=== PATIENT | female | born 1975 | race Caucasian/White ===

== ENCOUNTER 2018-09-13 07:31 | Day surgery (SDC) | payer OTHER ==
[2018-09-13] VITALS (7 sets, daily range): BP systolic 105–128; BP diastolic 56–90
[~2018-09-13] VITALS: Ht 157.5 cm; Wt 51.6 kg
[~2018-09-13 07:31] MED LIST: LR 1,000 ML IV SCH
[2018-09-13 07:51] LABS: HEMATOCRIT 45.4 % (36.0-47.0); HEMOGLOBIN 15.3 g/dl (12.0-15.5); MEAN CORPUSCULAR HGB CONC 33.7 g/dl (32.0-36.5); PLATELET COUNT, AUTOMATED 179 10^3/uL (150-450); RED BLOOD COUNT 4.78 10^6/uL (4.00-5.40); WHITE BLOOD COUNT 6.4 10^3/uL (4.0-10.0)
[2018-09-13 07:53] LABS: URINE PREG TEST NEGATIVE (NEGATIVE)
[2018-09-13] MEDS ORDERED: OXYC1TAB23 PO (08:09)
[2018-09-13] MEDS ORDERED: IBUP-1022 PO (08:11)
[2018-09-13] MEDS ORDERED: LIDOCAINE 2% INJ 100 MG/5 ML SDV (FOR ANES.) As Ordered ONE (08:55)
[2018-09-13] MEDS ORDERED: MIDAZOLAM INJ 2 MG/2 ML VIAL (J2250) As Ordered ONE (08:55)
[2018-09-13] MEDS ORDERED: dexameTHASONE 4 MG/ML 1ML VIAL (J1100) As Ordered ONE (08:55)
[2018-09-13] MEDS ORDERED: ROCURONIUM BROMIDE 50 MG/5 ML VIAL As Ordered ONE ×2 (08:55→09:12)
[2018-09-13] MEDS ORDERED: ONDANSETRON 4MG/2ML VIAL (J2405) As Ordered ONE (08:55)
[2018-09-13] MEDS ORDERED: METOCLOPRAMIDE INJ 10MG/2ML VIAL (J2765) As Ordered ONE (08:55)
[2018-09-13] MEDS ORDERED: PROPOFOL 200 MG/20 ML VIAL As Ordered ONE (08:55)
[2018-09-13] MEDS ORDERED: fentaNYL 250 MCG/5 ML INJECTION (J3010) As Ordered ONE (08:55)
[2018-09-13] MEDS ORDERED: SUGAMMADEX SODIUM 500 MG/5 ML VIAL (BRIDION) As Ordered ONE (08:55)
[2018-09-13] MEDS ORDERED: KETOROLAC 60 MG/2 ML VIAL (J1885) As Ordered ONE (08:55)
[2018-09-13] MEDS ORDERED: HYDROmorphone HCL 2 MG/ML 1ML VIAL (J1170) As Ordered ONE (09:18)
[2018-09-13] MEDS ORDERED: BUPIVACAINE HCL 0.25% 10 ML VIAL As Ordered ONE (09:54)
[2018-09-13] MEDS ORDERED: METHYLENE BLUE 0.5% (5MG/ML) 10 ML AMP (PROVAYBLUE)(Q9968 PER 1MG) As Ordered ONE (09:55)
[2018-09-13] MEDS ORDERED: fentaNYL 100 MCG/2 ML INJECTION (J3010) IV PRN (10:30)
[2018-09-13] MEDS ORDERED: ONDANSETRON 4MG/2ML VIAL (J2405) IV PRN ×2 (10:30)
[2018-09-13] MEDS ORDERED: LR 1,000 ML IV SCH ×2 (10:30)
[2018-09-13] MEDS ORDERED: PERCOCET 5MG/325MG TAB PO PRN ×2 (10:30)
[2018-09-13] MEDS ORDERED: MORPHINE 4 MG/ML 1ML VIAL/SYRINGE (J2270) IV PRN (10:30)
[2018-09-13] MEDS ORDERED: NORCO, ANEXSIA 5/325MG TABLET (HYDROcodone/ACETAMINOPHEN) PO PRN (10:30)
[2018-09-13] MEDS ORDERED: IBUPROFEN 800 MG TAB PO PRN (18:15)
[2018-09-13] MEDS ORDERED: DOCUSATE SODIUM 100 MG CAP PO SCH (21:00)
--- NOTE | 2018-09-16 21:31 | RO ---
DATE OF PROCEDURE: 09/13/2018 PREPROCEDURE DIAGNOSIS: Dysmenorrhea, pelvic pain. POSTPROCEDURE DIAGNOSIS: Dysmenorrhea, pelvic pain. PROCEDURE: Robotic-assisted laparoscopic hysterectomy and bilateral salpingo-oophorectomy. Cystoscopy. SURGEON: Nithin Snyder MD DEBONING TEAM LEADER: Airam Cabral NP ANESTHESIA: General endotracheal. ESTIMATED BLOOD LOSS: 100 mL. URINE OUTPUT: 100 mL. FINDINGS: Normal sized uterus, moderately dense scarring of the bladder to the anterior lower uterine segment, normal fallopian tubes and ovaries, evidence of prior tubal sterilization procedure. DESCRIPTION OF PROCEDURE: The patient was taken to the operating room where general endotracheal anesthesia was induced. She was prepped and draped in a sterile fashion in the dorsal lithotomy position. A Frank catheter was placed. A Spectral Edgeare uterine manipulator was placed. A periumbilical incision was made with a scalpel. The Veress needle was placed through this incision while tenting up on the skin of the abdomen. Intraabdominal location of the Veress needle was assessed with the use of a saline-filled syringe. A pneumoperitoneum was created. The Veress needle was removed. The 8 mm trocar using Lollipuff was inserted through this incision. Three 8 mm suprapubic ports were placed under direct visualization. The patient was placed in Trendelenburg position. The [employer] surgical robot was docked to the ports. Using the fenestrated bipolar instrument and vessel sealer, the IP ligaments, broad ligament attachments, round ligaments were coagulated and incised bilaterally. The anterior and posterior leaves of the broad ligament were . A bladder flap was created using a combination of blunt and sharp dissection. There was noted to be a superficial injury to the muscularis of the bladder that was approximately 1 cm in length while creating a bladder flap. This did not penetrate into the mucosa of the bladder. The superficial laceration was noted, and the procedure proceeded as normal. The bladder flap was finished. The uterine vessels were coagulated and incised. A colpotomy was created in the upper vagina at the level of the VCare cup using monopolar Endoshears. This was extended circumferentially around the upper vagina. Specimen including the uterus, cervix, fallopian tube and ovaries was removed through the vagina. The vaginal cuff was closed with #1 V-Loc suture in a running fashion. The pelvis was irrigated with good hemostasis noted. #2-0 Vicryl suture was used to place three interrupted sutures in the muscularis of the bladder in the area of the injury. The area was completely closed. The pneumoperitoneum was released. All instruments were removed. Cystoscopy was performed using a 70-degree cystoscope. The patient received methylene blue dye intravenously. Bilateral ureteral jets were identified. There was no evidence of injury to the mucosa of the bladder upon close inspection with cystoscopy. The sutures from the muscularis bladder repair were not visible on cystoscopy. The cystoscope was removed and a Frank catheter was placed. The ports were removed, the skin was closed with #4-0 Monocryl subcuticular sutures. Sponge, instrument and needle counts were correct. Airam Cabral NP, assisted with all aspects of procedure from beginning to end. She helped insert the ports after positioning the patient. She helped dock the robot and manipulate the uterus throughout the procedure. She subsequently removed the specimen and helped with undocking and movement of the patient.
== END 2018-09-13 18:50 | disposition home or self-care (01) ==
LOC: M SDC 07:31 → M PED 11:30 → M SDC 18:50
PROVIDERS: ATTEND Specialist
DX: N94.6 Dysmenorrhea, unspecified (principal); R10.2 Pelvic and perineal pain; N72 Inflammatory disease of cervix uteri; N83.01 Follicular cyst of right ovary; N83.02 Follicular cyst of left ovary; N83.10 Corpus luteum cyst of ovary, unspecified side; K58.9 Irritable bowel syndrome, unspecified; K21.9 Gastro-esophageal reflux disease without esophagitis; M12.9 Arthropathy, unspecified; Z72.0 Tobacco use
CPT/HCPCS: 36415; 58571; 84703; 85027; 86850; 86900; 86901; 88307; J0690; J1100; J1170; J1885; J2250; J2405; J2765; J3010; Q9968

== ENCOUNTER → 2019-07-04 | Outpatient (REF) | payer OTHER ==
[~2019-07-04] MED LIST changes: +IBUP-1022 PO; -LR 1,000 ML IV SCH; +OXYC1TAB23 PO
== END ==
LOC: M SFHCCLAY 10:58
PROVIDERS: ATTEND Nurse Practitioner Family
DX: J02.9 Acute pharyngitis, unspecified (principal)

== ENCOUNTER → 2019-08-20 | Outpatient (REF) | payer OTHER ==
[2019-08-20 16:17] LABS: HEMATOCRIT 47.1 % (36.0-47.0); HEMOGLOBIN 16.1 g/dl (12.0-15.5); MEAN CORPUSCULAR HEMOGLOBIN 32.4 pg (27.0-33.0); MEAN CORPUSCULAR HGB CONC 34.2 g/dl (32.0-36.5); MEAN CORPUSCULAR VOLUME 94.8 fl (80.0-96.0); PLATELET COUNT, AUTOMATED 201 10^3/uL (150-450); RED BLOOD COUNT 4.97 10^6/uL (4.00-5.40)
[2019-08-20 16:23] LABS: ALBUMIN 4.2 GM/DL (3.2-5.2); ALT/SGPT 25 U/L (12-78); BILIRUBIN,TOTAL 0.7 MG/DL (0.2-1.0); BLOOD UREA NITROGEN 12 MG/DL (7-18); CALCIUM LEVEL 9.7 MG/DL (8.5-10.1); CARBON DIOXIDE LEVEL 30 MEQ/L (21-32); CHLORIDE LEVEL 103 MEQ/L (98-107); CHOLESTEROL LEVEL 229 MG/DL (<200); CREATININE FOR GFR 0.75 MG/DL (0.55-1.30); GLOMERULAR FILTRATION RATE > 60.0 (>58); GLUCOSE, FASTING 82 MG/DL (70-100); HDL CHOLESTEROL 53 MG/DL (>40); LDL CHOLESTEROL 155 MG/DL (<100); NON-HDL-C 176 MG/DL; POTASSIUM SERUM 4.7 MEQ/L (3.5-5.1); SODIUM LEVEL 139 MEQ/L (136-145); TOTAL PROTEIN 7.8 GM/DL (6.4-8.2); TRIGLYCERIDES LEVEL 103 MG/DL (<150)
== END ==
LOC: M SFHCCLAY 11:55
PROVIDERS: ATTEND Nurse Practitioner Family
DX: E78.5 Hyperlipidemia, unspecified (principal)

== ENCOUNTER → 2019-08-22 | Outpatient (CLI) | payer OTHER ==
--- NOTE | 2019-08-22 10:04 | REP ---
REASON: Bilateral hip pain. PRIORS: None. 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 There is no fracture, dislocation or subluxation. LEFT HIP: There is a prominent left femoral head CAM deformity with marginal osteophytosis and asymmetric joint space narrowing. There is no acute fracture, dislocation or subluxation. AP PELVIS: No acute fracture. Please see dedicated hip reports. Electronically Signed by Arnold Palomino DO 08/22/2019 10:32 A
--- NOTE | 2019-08-22 10:08 | REP ---
CERVICAL SPINE SERIES: Seven views of the cervical spine are performed. There is no compression fracture. There is no prevertebral soft tissue swelling. There is mild spurring of C4 through C6. There is mild disc space narrowing at C5-6. At that level, there is slight retrolisthesis of C5 on C6 of about 2 mm in the neutral position and with extension. This reduces with flexion. There is no radiographic evidence of significant neural foraminal narrowing. IMPRESSION: Mild degenerative disc changes C5-6 with slight retrolisthesis 2 mm of C5 on C6, both in the neutral and extension positions. This reduces with flexion. Electronically Signed by Isra Prescott MD 08/22/2019 10:41 A
--- NOTE | 2019-08-22 10:20 | REP ---
THORACIC SPINE, AP AND LATERAL: Three AP and lateral views of the thoracic spine are performed. There is no compression fracture or malalignment. There is normal thoracic kyphosis. There is moderate spurring of T8 and T9 anteriorly with scattered tiny spurs of the remaining thoracic vertebral bodies. There is slight disc space narrowing and subchondral sclerosis at several levels. Posterior elements are intact. IMPRESSION: Mild degenerative changes with no fracture or dislocation. Electronically Signed by Isra Prescott MD 08/22/2019 10:41 A
== END ==
LOC: M CLY 08:25
PROVIDERS: ATTEND Nurse Practitioner Family
DX: M43.12 Spondylolisthesis, cervical region (principal); M50.322 Other cervical disc degeneration at C5-C6 level; M54.6 Pain in thoracic spine; M25.559 Pain in unspecified hip

== ENCOUNTER 2020-02-04 09:59 | Emergency (ER) | payer OTHER ==
[~2020-02-04] VITALS: Ht 157.5 cm; Wt 58.3 kg
[~2020-02-04 09:59] MED LIST changes: -CARA1TAB6 PO; -ONDA4TAB6 PO; -PANT-23 PO; -PROTPAK PO
[2020-02-04 10:39] LABS: BASO % 0.6 % (0.0-1.0); EOS # 0.1 10^3/uL (0.0-0.5); EOS % 1.9 % (0.0-3.0); HEMATOCRIT 44.7 % (36.0-47.0); HEMOGLOBIN 15.4 g/dl (12.0-15.5); LYMPH % 37.9 % (24.0-44.0); MEAN CORPUSCULAR HEMOGLOBIN 31.9 pg (27.0-33.0); MEAN CORPUSCULAR HGB CONC 34.5 g/dl (32.0-36.5); MEAN CORPUSCULAR VOLUME 92.5 fl (80.0-96.0); MONO # 0.6 10^3/uL (0.0-0.8); MONO % 11.6 % (0.0-5.0); NEUTROPHILS # 2.6 10^3/uL (1.5-8.5); NEUTROPHILS % 47.8 % (36.0-66.0); PLATELET COUNT, AUTOMATED 157 10^3/uL (150-450); RED BLOOD COUNT 4.83 10^6/uL (4.00-5.40); WHITE BLOOD COUNT 5.3 10^3/uL (4.0-10.0)
[2020-02-04 11:09] LABS: ALBUMIN 3.7 GM/DL (3.2-5.2); ALT/SGPT 65 U/L (12-78); BILIRUBIN,DIRECT 0.1 MG/DL (0.0-0.2); BILIRUBIN,TOTAL 0.3 MG/DL (0.2-1.0); BLOOD UREA NITROGEN 10 MG/DL (7-18); CALCIUM LEVEL 9.1 MG/DL (8.5-10.1); CARBON DIOXIDE LEVEL 25 MEQ/L (21-32); CHLORIDE LEVEL 109 MEQ/L (98-107); CREATININE FOR GFR 0.74 MG/DL (0.55-1.30); GLOMERULAR FILTRATION RATE > 60.0 (>58); GLUCOSE, FASTING 82 MG/DL (70-100); LIPASE 114 U/L (73-393); POTASSIUM SERUM 3.6 MEQ/L (3.5-5.1); SODIUM LEVEL 139 MEQ/L (136-145); TOTAL PROTEIN 7.3 GM/DL (6.4-8.2)
[2020-02-04] MEDS ORDERED: ISOVUE-370 76% 100ML VIAL As Ordered ONE (11:28)
[2020-02-04] MEDS ORDERED: NS 1,000 ML IV ONE (11:30)
[2020-02-04] MEDS ORDERED: ONDANSETRON 4MG/2ML VIAL IV ONE (11:30)
[2020-02-04] MEDS ORDERED: KETOROLAC 30 MG/ML 1ML VIAL IV ONE (11:30)
--- NOTE | 2020-02-04 12:26 | REPVR ---
PROCEDURE INFORMATION: Exam: CT Abdomen And Pelvis With Contrast Exam date and time: 02/04/2020 11:41 AM Age: 44 years old Clinical indication: Abdominal pain; Additional info: Abd pain TECHNIQUE: Imaging protocol: Computed tomography of the abdomen and pelvis with intravenous contrast. Radiation optimization: All CT scans at this facility use at least one of these dose optimization techniques: automated exposure control; mA and/or kV adjustment per patient size (includes targeted exams where dose is matched to clinical indication); or iterative reconstruction. Contrast material: ISOVUE 370; Contrast volume: 100 ml; Contrast route: INTRAVENOUS (IV); COMPARISON: CT ABD PELVIS WITH CONTRAST 02/08/2016 9:55 AM FINDINGS: Pleural space: No acute airspace or pleural disease. Liver: Punctate hypodensities in the liver which are too small to accurately characterize. Gallbladder and bile ducts: No cholelithiasis or biliary ductal dilatation. Pancreas: No pancreatic mass or ductal dilatation. Spleen: No splenomegaly. Adrenals: Subtle left adrenal nodularity. Kidneys and ureters: Normal renal morphology. No hydronephrosis. Stomach and bowel: Gastric wall thickening. No significant small bowel dilatation. Scattered diverticula, without pericolonic inflammation. Prominent stool. Appendix: No acute appendicitis. Intraperitoneal space: Trace free fluid in the cul-de-sac. Vasculature: Vascular calcification. Normal caliber of the abdominal aorta. Lymph nodes: Subcentimeter lymph nodes. Bladder: Unremarkable bladder. Reproductive: Status post hysterectomy. Bones/joints: L3 limbus vertebra. Degenerative change. Calcified disc bulging at the L5-S1 level. IMPRESSION: 1. Gastric wall thickening. 2. Scattered diverticula, without pericolonic inflammation. 3. Additional findings as described above. Electronically signed by: Isael Gonzalez On 02/04/2020 12:26:08 PM
[2020-02-04] MEDS ORDERED: ONDA4TAB6 PO (12:55)
[2020-02-04] MEDS ORDERED: PANT-23 PO (12:55)
[2020-02-04] MEDS ORDERED: CARA1TAB6 PO (12:55)
[2020-02-04 13:10] VITALS: BP 106/64
--- NOTE | 2020-02-06 08:55 | ED PDOC ---
Post-Departure Follow-Up radiology report faxed to Amira Lane MD Feb 06, 2020 08:55
== END 2020-02-04 13:12 | disposition home or self-care (01) ==
LOC: M ED 09:59
DX: K29.70 Gastritis, unspecified, without bleeding (principal); K58.9 Irritable bowel syndrome, unspecified; F17.200 Nicotine dependence, unspecified, uncomplicated; K57.90 Diverticulosis of intestine, part unspecified, without perforation or abscess without bleeding
CPT/HCPCS: 36415; 74177; 80048; 80076; 81001; 83690; 85025; 96361; 96374; 96375; 99284; J1885; J2405; Q9967

== ENCOUNTER → 2020-02-04 | Outpatient (REF) | payer OTHER ==
[~2020-02-04] MED LIST changes: +CARA1TAB6 PO; +ONDA4TAB6 PO; +PANT-23 PO; +PROTPAK PO
== END ==
LOC: M LAB REF 16:25
PROVIDERS: ATTEND Physician Assistant
DX: K29.70 Gastritis, unspecified, without bleeding (principal)

== ENCOUNTER 2020-02-08 18:56 | Emergency (ER) | payer OTHER ==
[~2020-02-08] VITALS: Ht 157.5 cm; Wt 56.3 kg
[~2020-02-08 18:56] MED LIST changes: +CARA1TAB6 PO; +ONDA4TAB6 PO; +PANT-23 PO
[2020-02-08] MEDS ORDERED: KETOROLAC 30 MG/ML 1ML VIAL IV ONE (19:30)
[2020-02-08] MEDS ORDERED: NS 1,000 ML IV ONE (19:30)
--- NOTE | 2020-02-08 19:41 | REPVR ---
PROCEDURE INFORMATION: Exam: XR Chest, 2 Views Exam date and time: 02/08/2020 7:25 PM Age: 44 years old Clinical indication: Pain; Other: Abd; Additional info: Abdominal pain TECHNIQUE: Imaging protocol: XR of the chest Views: 2 views. COMPARISON: No relevant prior studies available. FINDINGS: Lungs: Unremarkable. No consolidation. Pleural space: Unremarkable. No pleural effusion. No pneumothorax. Heart/Mediastinum: Unremarkable. No cardiomegaly. Bones/joints: Unremarkable. IMPRESSION: No acute findings. Electronically signed by: Rex Calvert On 02/08/2020 19:40:45 PM
[2020-02-08 20:07] LABS: BASO % 0.4 % (0.0-1.0); EOS # 0.1 10^3/uL (0.0-0.5); EOS % 2.3 % (0.0-3.0); HEMATOCRIT 43.8 % (36.0-47.0); HEMOGLOBIN 15.3 g/dl (12.0-15.5); LYMPH # 1.8 10^3/uL (1.5-5.0); LYMPH % 31.6 % (24.0-44.0); MEAN CORPUSCULAR HEMOGLOBIN 31.5 pg (27.0-33.0); MEAN CORPUSCULAR HGB CONC 34.9 g/dl (32.0-36.5); MEAN CORPUSCULAR VOLUME 90.1 fl (80.0-96.0); MONO # 0.6 10^3/uL (0.0-0.8); MONO % 10.8 % (0.0-5.0); NEUTROPHILS % 54.5 % (36.0-66.0); PLATELET COUNT, AUTOMATED 225 10^3/uL (150-450); RED BLOOD COUNT 4.86 10^6/uL (4.00-5.40); WHITE BLOOD COUNT 5.6 10^3/uL (4.0-10.0)
[2020-02-08 20:37] LABS: ALBUMIN 3.6 GM/DL (3.2-5.2); ALT/SGPT 51 U/L (12-78); BILIRUBIN,DIRECT < 0.1 MG/DL (0.0-0.2); BILIRUBIN,TOTAL 0.5 MG/DL (0.2-1.0); CK-MB VALUE MASS < 1.0 NG/ML (<3.6); CPK CREATINE PHOSPHOKINASE 89 U/L (26-192); LIPASE 182 U/L (73-393); MB/CK RELATIVE INDEX 1.12 (< OR =4); TROPONIN I < 0.02 NG/ML (< 0.10)
--- NOTE | 2020-02-08 20:55 | REPVR ---
PROCEDURE INFORMATION: Exam: US Abdomen, Limited; Right Upper Quadrant Exam date and time: 02/08/2020 8:22 PM Age: 44 years old Clinical indication: Abdominal pain; Acute; Additional info: Ruq pain, sharp TECHNIQUE: Imaging protocol: US abdomen. Real time ultrasound with image documentation. Limited exam focused on the right upper quadrant. COMPARISON: CT ABD/PEL W/IV CONTRAST ONLY 02/04/2020 11:34 AM FINDINGS: Liver: Unremarkable. Gallbladder: No gallstones. No gallbladder wall thickening or pericholecystic fluid. Negative sonographic Pineda's sign, as per the performing director of strategic initiatives. Common bile duct: No stones. No ductal dilatation. Pancreas: Unremarkable as visualized. Right kidney: No mass. No definite stones. No hydronephrosis. IMPRESSION: No acute sonographic findings. Electronically signed by: José Lemon On 02/08/2020 20:54:53 PM
[2020-02-08] MEDS ORDERED: PANTOPRAZOLE 40MG VIAL (C9113 PER 1) IV ONE (21:30)
[2020-02-08] MEDS ORDERED: GI COCKTAIL 50ML BTL(HYOSCYAMINE/MAALOX/LIDOCAINE VISCOUS)(1:3:1) PO ONE (21:30)
[2020-02-08] MEDS ORDERED: PROTPAK PO (22:45)
[2020-02-08 22:49] VITALS: BP 98/60
--- NOTE | 2020-02-09 20:23 | ECGEPIP ---
[facility] - ED Test Date: 2020-02-08 Pat Name: EUGENIA MILLER Department: Room: - Gender: Female Hebrew Cantor: : 1975 Requested By: LYLY Ramos PA-C Order Number: [id number] Reading MD: Amira Treviño Measurements Intervals [place] Rate: 73 P: 32 FL: 111 QRS: 51 QRSD: 83 T: 39 QT: 359 QTc: 396 Interpretive Statements SINUS RHYTHM WITH SHORT FL INTERVAL no prior Electronically Signed on 02-09-2020 20:23:00 EDT by Amira Treviño
== END 2020-02-08 23:15 | disposition home or self-care (01) ==
LOC: M ED 18:56
DX: K29.70 Gastritis, unspecified, without bleeding (principal); F17.200 Nicotine dependence, unspecified, uncomplicated; Z79.899 Other long term (current) drug therapy
CPT/HCPCS: 71046; 76705; 80047; 80076; 82550; 82553; 83605; 83690; 85025; 93005; 96361; 96374; 96375; 99284; C9113; J1885

== ENCOUNTER 2021-11-22 09:54 | Emergency (ER) | payer OTHER ==
[~2021-11-22] VITALS: Ht 157.5 cm; Wt 65.9 kg
[~2021-11-22 09:54] MED LIST changes: +PROTPAK PO
[2021-11-22] MEDS ORDERED: KETOROLAC 60MG 2ML VIAL IM ONE (11:10)
[2021-11-22 11:12] LABS: BASO # 0.1 10^3/uL (0.0-0.2); EOS # 0.1 10^3/uL (0.0-0.5); EOS % 2.1 % (0.0-3.0); HEMATOCRIT 43.2 % (36.0-47.0); HEMOGLOBIN 14.5 g/dl (12.0-15.5); LYMPH # 1.9 10^3/uL (1.5-5.0); LYMPH % 36.8 % (24.0-44.0); MEAN CORPUSCULAR HEMOGLOBIN 30.6 pg (27.0-33.0); MEAN CORPUSCULAR HGB CONC 33.6 g/dl (32.0-36.5); MEAN CORPUSCULAR VOLUME 91.1 fl (80.0-96.0); MONO # 0.5 10^3/uL (0.0-0.8); NEUTROPHILS # 2.7 10^3/uL (1.5-8.5); NEUTROPHILS % 50.9 % (36.0-66.0); PLATELET COUNT, AUTOMATED 231 10^3/uL (150-450); RED BLOOD COUNT 4.74 10^6/uL (4.00-5.40); WHITE BLOOD COUNT 5.3 10^3/uL (4.0-10.0)
[2021-11-22] MEDS ORDERED: KETOROLAC 30 MG/ML 1ML VIAL As Ordered ONE (11:13)
[2021-11-22 11:48] LABS: ALBUMIN 4.3 GM/DL (3.2-5.2); ALT/SGPT 24 U/L (12-78); BILIRUBIN,DIRECT < 0.1 MG/DL (0.0-0.2); BILIRUBIN,TOTAL 0.3 MG/DL (0.2-1.0); LIPASE 156 U/L (73-393); TOTAL PROTEIN 8.2 GM/DL (6.4-8.2)
[2021-11-22] MEDS ORDERED: METH-1165 PO (12:27)
[2021-11-22 12:39] VITALS: BP 118/68
== END 2021-11-22 12:44 | disposition home or self-care (01) ==
LOC: M ED 09:54
DX: R10.9 Unspecified abdominal pain (principal); K58.9 Irritable bowel syndrome, unspecified; Z87.448 Personal history of other diseases of urinary system; Z87.59 Personal history of other complications of pregnancy, childbirth and the puerperium; Z87.891 Personal history of nicotine dependence
CPT/HCPCS: 74176; 80047; 80076; 81001; 83690; 85025; 96372; 99283; J1885